=== PATIENT | male | born 1985 | race African-American/Black ===

== ENCOUNTER 2017-11-19 20:52 | Inpatient (IN) | payer BC ==
[~2017-11-19 20:52] MED LIST: ISOVUE-370 76%-LOCM 1 ML ONE
[2017-11-19 21:29] LABS: #Basophils 0.1 thou/uL (0.0-0.2); #Eosinphils 0.1 thou/uL (0.0-0.7); #Lymphocytes 2.9 thou/uL (1.20-3.40); #Monocytes 0.7 thou/uL (0.11-0.59); #Neutrophils 7.1 thou/uL (1.40-6.50); %Basophils 0.9 % (0.0-1.0); %Eosinophils 0.9 % (0.0-10.0); %Lymphocytes 26.6 % (21.0-51.0); %Monocytes 6.1 % (0.0-10.0); %Neutrophils 65.5 % (42.0-75.0); Hemoglobin 15.9 g/dL (14.0-18.0); Mean Corpuscular HGB CONC 34.3 g/dL (32.0-36.0); Mean Corpuscular Hemoglobin 34.1 pg (27.0-31.0); Mean Corpuscular Volume 99.6 fL (78.0-98.0); Mean Platelet Volume 6.8 fL (7.4-10.4); Platelet Count 242 thou/uL (130-400); RBC Distribution Width 11.1 % (11.5-14.5); Red Blood Cell (RBC) Count 4.67 mill/uL (4.70-6.10); White Blood Cell (WBC) Count 10.8 thou/uL (4.8-10.8)
[2017-11-19 21:48] LABS: ALT (SGPT) 67 U/L (8-55); AST (SGOT) 32 U/L (5-34); Albumin 4.8 g/dL (3.5-5.0); Alkaline Phosphatase 99 U/L (40-150); Anion Gap 12 mmol/L (10-20); BUN (Urea Nitrogen) 10 mg/dL (8.9-20.6); Bilirubin, Total 0.6 mg/dL (0.2-1.2); Calc. Creatinine Clearance 0 mL/min (70-130); Calcium 9.5 mg/dL (7.8-10.44); Carbon Dioxide 21 mmol/L (22-29); Chloride 109 mmol/L (98-107); Estimated GFR-MDRD Greater than 90; Globulin 2.6 g/dL (2.4-3.5); Glucose 94 mg/dL (70-105); Lipase 474 U/L (8-78); Potassium 3.7 mmol/L (3.5-5.1); Protein, Total 7.4 g/dL (6.0-8.3); Sodium 138 mmol/L (136-145)
[2017-11-19 22:26] LABS: Bilirubin Negative (Negative); Blood, Urine Negative (Negative); Clarity CLEAR (Clear); Glucose, Urine (Dipstick) Negative (Negative); Leukocyte Negative (Negative); Nitrite Negative (Negative); Protein, Urine (Dipstick) Negative (Neg-Trace); Specific Gravity, Urine 1.009 (1.002-1.036); Urobilinogen 0.2 mg/dL (0.2-1.0)
[2017-11-19] MEDS ORDERED: Ondansetron HCl/PF 4 MG/2 ML Vial ONE (22:26)
[2017-11-19] MEDS ORDERED: Morphine 10 MG/ML VIAL ONE (22:26)
[2017-11-20] MEDS ORDERED: Ondansetron HCl/PF 4 MG/2 ML Vial ONE (01:03)
[2017-11-20] MEDS ORDERED: metroNIDAZOLE 500 MG/100 ML BAG ONE (02:00)
[2017-11-20] MEDS ORDERED: Acetaminophen 325 MG TAB PO PRN (02:11)
[2017-11-20] MEDS ORDERED: Ondansetron ODT 4 MG TAB PO PRN (02:11)
[2017-11-20 03:07] LABS: #Eosinphils 0.1 thou/uL (0.0-0.7); #Lymphocytes 1.6 thou/uL (1.20-3.40); #Monocytes 1.1 thou/uL (0.11-0.59); %Basophils 0.2 % (0.0-1.0); %Eosinophils 0.5 % (0.0-10.0); %Lymphocytes 12.2 % (21.0-51.0); %Monocytes 8.5 % (0.0-10.0); %Neutrophils 78.5 % (42.0-75.0); Hemoglobin 14.4 g/dL (14.0-18.0); Mean Platelet Volume 7.1 fL (7.4-10.4); Platelet Count 221 thou/uL (130-400); RBC Distribution Width 11.1 % (11.5-14.5); Red Blood Cell (RBC) Count 4.37 mill/uL (4.70-6.10); White Blood Cell (WBC) Count 12.7 thou/uL (4.8-10.8)
--- NOTE | 2017-11-20 03:21 | HP ---
CODE STATUS: FULL CODE. PRIMARY CARE PHYSICIAN: None. TIME OF EVALUATION: 2:00 a.m. CHIEF COMPLAINT: Abdominal pain. HISTORY OF PRESENT ILLNESS: A 32-year-old male patient, no significant past medical history, came to the hospital after having severe gradually worsening, not relieving left lower quadrant pain that st arted for about 2 hours prior to presentation to ER when he was leaving his classes. Radiation is di ffusing the abdomen, no clear triggers, or alleviating factors, pain medications. REVIEW OF SYSTEMS: Constitutional: No fever or chills or generalized weakness. Respiratory: No co ugh, sputum production or shortness of breath. Cardiovascular: No chest pain, palpitations, shortne ss of breath. Gastrointestinal: Patient has severe abdominal pain, nausea, no vomiting. 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 Genitourinary: No burning with urination. Extremities: No leg swelling. PAST MEDICAL HISTORY: None reported. PAST SURGICAL HISTORY: None reported. PSYCHIATRIC HISTORY: None reported. SOCIAL HISTORY: Patient smoke cigars. FAMILY HISTORY: Mother with hypertension, hypothyroidism. DRUG ALLERGIES: No known drug allergies. REPORTED MEDICATIONS: Flonase 2 sprays once a day. PHYSICAL EXAMINATION: VITAL SIGNS: On presentation blood pressure 124/79 with heart rate 77, respiratory rate was 18, temp erature 98.6, pain 10/10. GENERAL APPEARANCE: The patient is alert, oriented, not in any acute distress. HEENT: Normocephalic, conjunctivae. Moist oral mucosa. Anicteric. NECK: No JVD. RESPIRATORY: Bilateral air entry. No rales, no wheezing. Symmetric expansion. CARDIOVASCULAR: Normal rate, regular rhythm. No murmurs, no gallop, no edema. ABDOMEN: Soft, normal bowel sounds, tender. MUSCULOSKELETAL: Baseline range of motion and strength. No tenderness. SKIN: Warm and intact. No pale, no rash, no redness. NEUROLOGIC: Baseline sensory. No evidence of any new focal weakness. Baseline speech. Cranial ner ve seems to be intact. PSYCHIATRIC: Good mood . No anxiety, oriented, optimal judgment. LABORATORY DATA: Reviewed. White count is 10, hemoglobin 15, platelet count 242. Sodium 138, potas sium 3.7, chloride 109, carbon dioxide 21, anion gap 12, BUN 10, creatinine 0.9, GFR 90, glucose 94, calcium 9.5. Total bilirubin 0.6, AST 32, ALT 67, lipase 474. Radiology report: This report was given to ER physician, results were discussed with performing [place]. Patient had acute uncomplicated sigmoid diverticulitis. ASSESSMENT AND PLAN: The patient will be placed in the hospital with following medical problems: 1. Acute sigmoid diverticulitis, place the patient on Cipro and Flagyl, pain management, hydration. Education regarding change in diet has been given. 2. Possible acute pancreatitis, lipase is high, patient receiving IV fluids, pain management, might need opioids for optimal control. Patient is at high risk for complication for treatment. 3. Deep venous thrombosis prophylaxis.
[2017-11-20] MEDS: Sodium Chloride 0.9% 1,000 ML IV SCH ×3 (04:08→15:01)
[2017-11-20 04:12] LABS: Anion Gap 16 mmol/L (10-20); BUN (Urea Nitrogen) 9 mg/dL (8.9-20.6); Calc. Creatinine Clearance 0 mL/min (70-130); Calcium 8.9 mg/dL (7.8-10.44); Carbon Dioxide 18 mmol/L (22-29); Chloride 110 mmol/L (98-107); Estimated GFR-MDRD Greater than 90; Glucose 101 mg/dL (70-105); Sodium 140 mmol/L (136-145)
[2017-11-20] MEDS: metroNIDAZOLE 500 MG in Premix Bag 1 BAG IVPB SCH ×3 (05:27→22:09)
[2017-11-20 06:38] LABS: Lactic Acid 1.6 mmol/L (0.5-2.2)
[2017-11-20] MEDS: Enoxaparin Sodium 40 MG/0.4 ML SYRINGE SC SCH (07:49)
--- NOTE | 2017-11-20 08:48 | CT ---
PRELIMINARY REPORT/[facility]/EMERGENTY AFTER-HOURS PROCEDURE CT Abdomen and Pelvis With Intravenous Contrast CLINICAL HISTORY: 32 years old, male; Pain; Abdominal pain; Generalized; Patient HX: M32 reports to ed C/O abdominal pa in. Pt reports llq pain started x2 hours ago when leaving night classes. Pt reports an increase in ni ght sweats and chills for last few weeks. Pt denies n/v/d. Pt reports lbm was today. Pt also reports back pain but no radiation. TECHNIQUE: Axial computed tomography images of the abdomen and pelvis with intravenous contrast. Oral contrast w as administered. Coronal reformatted images were created and reviewed. COMPARISON: No relevant prior studies available. FINDINGS: Lung bases: Minimal bibasilar dependent atelectasis. ABDOMEN: Liver: Mild hepatic steatosis. Gallbladder and bile ducts: Unremarkable Pancreas: Unremarkable. Spleen: Unremarkable. Adrenals: Unremarkable. Kidneys and ureters: Right renal cyst measuring approximately 2.1 x 1.6 cm. Stomach and bowel: Diverticulosis of the colon with mild inflammatory changes in the sigmoid. PELVIS: Appendix: Normal appendix. Bladder: Unremarkable. Reproductive: Unremarkable. ABDOMEN and PELVIS: Intraperitoneal space: No free air. No significant fluid collection. Bones/joints: No acute fracture. No dislocation. Soft tissues: Unremarkable. Vasculature: Unremarkable. No abdominal aortic aneurysm. Lymph nodes: Scattered nonspecific subcentimeter mesenteric lymph nodes. IMPRESSION: Acute uncomplicated sigmoid diverticulitis. Thank you for allowing us to participate in the care of your patient. Dictated and Authenticated by: Khurram Wang MD 11/20/2017 1:04 AM Central Time ([place] & [place]) FINAL REPORT CT ABDOMEN AND PELVIS WITH IV AND ORAL CONTRAST PERFORMED ON AN EMERGENCY BASIS: Date: 11/20/17 Time: 0013 hours HISTORY: Abdominal pain. Fever. FINDINGS: Findings agree with the preliminary report by Allison. Very mild inflammatory changes of the sigmoid col on with extensive diverticula. No evidence of bowel obstruction or complication. POS: [facility]
--- NOTE | 2017-11-20 08:49 | ULT ---
PRELIMINARY REPORT/[facility]/EMERGENTY AFTER-HOURS PROCEDURE US Abdomen Limited, Right Upper Quadrant CLINICAL HISTORY: 32 years old, male; Pain and signs and symptoms; Nausea and vomiting; Abdominal pain; Epigastric TECHNIQUE: Real-time ultrasound of the right upper quadrant with image documentation. COMPARISON: CT Abdomen Pelvis W Con 2017-11-20 00:10 FINDINGS: Liver: No mass. No intrahepatic bile duct dilation. Gallbladder: Normal gallbladder wall thickness measuring 1 mm. Negative sonographic Gray's sign. No gallstones. Common bile duct: Normal common bile duct measuring 2 mm. No stones. No dilation. Pancreas: Pancreas is obscured. Right kidney: Right kidney measuring 10.8 x 4.6 x 5.4 cm. No stones. No hydronephrosis. Free fluid: No free fluid. IMPRESSION: No acute findings. Thank you for allowing us to participate in the care of your patient. Dictated and Authenticated by: Khurram Wang MD 11/20/2017 2:44 AM Central Time ([place] & [place]) FINAL REPORT RIGHT UPPER QUADRANT ULTRASOUND: Date: 11/20/17 FINDINGS/IMPRESSION: I agree with the preliminary report given by Allison. POS: OFF
[2017-11-20 09:13] LABS: Acetaminophen Less than 6.0 mcg/mL (10.0-30.0); Alcohol Less than 10 mg/dL (Less than 10); Salicylate Less than 8.0 mg/dL (15.0-30.0); Triglycerides 45 mg/dL (Less than 150)
[2017-11-20 09:59] LABS: Amphetamine Not Detected (NotDetected); Barbiturates Screen Not Detected (NotDetected); Benzodiazepine Screen Not Detected (NotDetected); Cocaine Metabolite Screen Not Detected (NotDetected); Medtox Control Line Valid? VALID (VALID); Medtox Reader # READER 1; Methadone Not Detected (NotDetected); Methamphetamine Not Detected (NotDetected); Opiate Screen Detected (NotDetected); Oxycodone Screen Not Detected (NotDetected); Phencyclidine (PCP) Not Detected (NotDetected); THC/Cannabinoid Screen Detected (NotDetected); Tricyclic Screen Not Detected (NotDetected)
--- NOTE | 2017-11-20 13:25 | PDOC.PN ---
- Subjective Encounter Start Date: 11/20/17 Encounter Start Time: 12:00 Subjective: c/o abd pain, no nausea now -: generalized abd pain, no radiation, 6/10 intensity better now after meds -: family at bedside - Objective Resuscitation Status: Resuscitation Status FULL:Full Resuscitation MAR Reviewed: Yes Vital Signs & Weight: Vital Signs (12 hours) Temp Pulse Resp BP Pulse Ox 11/20/17 08:00 97.8 F 77 18 97 11/20/17 07:31 97.8 F 77 18 130/69 98 11/20/17 03:00 98.3 F 71 20 96 Result Diagrams: 11/20/17 02:04 11/20/17 02:04 Phys Exam - Physical Examination HEENT: PERRLA, moist MMs Neck: no JVD, supple Respiratory: no wheezing, no rales Cardiovascular: RRR, no significant murmur Gastrointestinal: soft, no distention, positive bowel sounds tenderness+ no rebound or guarding Musculoskeletal: no edema, pulses present Neurological: non-focal, moves all 4 limbs Psychiatric: normal affect, A&O x 3 Dx/Plan (1) Sigmoid diverticulitis Code(s): K57.32 - DVTRCLI OF LG INT W/O PERFORATION OR ABSCESS W/O BLEEDING Status: Acute (2) Abdominal pain Code(s): R10.9 - UNSPECIFIED ABDOMINAL PAIN Status: Acute Qualifiers: Abdominal location: generalized Qualified Code(s): R10.84 - Generalized abdominal pain (3) Metabolic acidosis Code(s): E87.2 - ACIDOSIS Status: Acute - Plan lipase elevated sec to ?nausea/vomiting, will monitor -: full liq diet, cipro and flagyl -: GI consultation -: dc plan in am if stable, gentle iv hydration -: morphine prn for pain * . Review of Systems - Medications/Allergies Allergies/Adverse Reactions: Allergies Allergy/AdvReac Type Severity Reaction Status Date / Time No Known Allergies Allergy Verified 11/20/17 03:10 Medications: Current Medications Acetaminophen (Tylenol) 650 mg PO Q4H PRN PRN Reason: Headache/Fever or Pain Enoxaparin Sodium (Lovenox) 40 mg SC 0900 [facility] Last Admin: 11/20/17 07:49 Dose: 40 mg Ciprofloxacin/Dextrose 400 mg/ (Device) 200 mls @ 200 mls/hr IVPB 0300,1500 JOSE Last Admin: 11/20/17 04:10 Dose: 200 mls Metronidazole 500 mg/ Device 100 mls @ 100 mls/hr IVPB Q8HR [facility] Last Admin: 11/20/17 05:27 Dose: Not Given Sodium Chloride (Normal Saline 0.9%) 1,000 mls @ 70 mls/hr IV .[id number] [facility] Morphine Sulfate (Morphine) 2 mg SLOW IVP Q4H PRN PRN Reason: Severe Pain (7-10) Last Admin: 11/20/17 08:42 Dose: 2 mg Ondansetron HCl (Zofran Odt) 4 mg PO Q6H PRN PRN Reason: Nausea/Vomiting
--- NOTE | 2017-11-20 15:57 | PQF ---
CLINICAL DOCUMENTATION IMPROVEMENT CLARIFICATION FORM: ICD-10 Updated PLEASE DO AN ADDENDUM TO THE PROGRESS NOTE WITH ANY DOCUMENTATION UPDATES OR ADDITIONS AND CARRY THROUGH TO DC SUMMARY. THANK YOU. DATE: 11/21/17 ATTN: DR. ARENAS Please exercise your independent, professional judgment in responding to the clarification form. Clinical indicators are provided on the bottom of this form for your review Please check appropriate box(s) to clarify if the following diagnosis has been ruled in or ruled out: PANCREATITIS [ X ] Ruled in diagnosis [ ] Continue to treat [ X ] Resolved [ ] Ruled out diagnosis [ ] Cannot rule out diagnosis [ ] Other diagnosis [ ] Unable to determine In addition, please specify: Present on Admission (POA): [ X ] Yes [ ] No [ ] Unable to determine For continuity of documentation, please document condition throughout progress notes and discharge summary. Thank You. CLINICAL INDICATORS - SIGNS / SYMPTOMS / LABS H&P: "POSSIBLE ACUTE PANCREATITIS" LIPASE 474 RISKS: SEVERE, GRADUALLY WORSENING, NOT RELIEVING LEFT LOWER QUADRANT PAIN (PER H&P) HISTORIAN REPORTS CHILLS (ER REPORT) H/O SOCIAL DRINKING TREATMENT: GI CONSULT IV PAIN CONTROL (ER-PRESENT) IV ANTIEMETICS (ER-PRESENT) IV CIPRO (ER-PRESENT) IV FLAGYL (ER-PRESENT) (This form is maintained as a part of the permanent medical record) 2014 [employer]. All Rights Reserved [email or web address] Office: [phone] [email or web address]
--- NOTE | 2017-11-20 20:50 | CON ---
DATE OF CONSULTATION: 11/20/2017 REASON FOR CONSULTATION: Diverticulitis, elevated lipase. CONSULTING PHYSICIAN: Alycia Cox M.D. HISTORY OF PRESENT ILLNESS: The patient is a 32-year-old male with no significant past medical history presenting with complaints of abdominal pain. He states that he was in his usual state of health until last night when he had acute onset of periumbilical abdominal pain characterized as a cramping/throbbing type pain, would radiate to the mid epigastric and left lower quadrant, was constant and would reach a severity of approximately 10/10. The pain was worse with urination and increased physical activity, better with the administration of pain medications. Associated symptoms include subjective fevers and chills (although the patient did not measure his temperature at home), otherwise he denies any nausea, vomiting, diarrhea, constipation, odynophagia, dysphagia or weight loss. Of note, the patient recently traveled to the [facility] approximately 3 weeks ago with a mild case of nausea and vomiting shortly before the trip. However, over the last 3-4 days per patient and his , he noticed increased night sweats that would "soaked the bed sheets". REVIEW OF SYSTEMS: A 10-category review of systems was obtained with all responses negative except for the pertinent positives as listed in the HPI. PAST MEDICAL HISTORY: None. PAST SURGICAL HISTORY: None. FAMILY HISTORY: Denies any GI malignancies, colon cancer, or colon polyps. SOCIAL HISTORY: Drinks approximately 1-2 beers on the weekend. He also drinks 1-2 Black and Mild cigars on the weekends when he drinks. Denies any illicit drug use. OUTPATIENT MEDICATIONS: Flonase. ALLERGIES: No known drug allergies. PHYSICAL EXAMINATION: VITAL SIGNS: Temperature 97.8, pulse 77, blood pressure 130/69, respiratory rate 18, satting 97% on room air. GENERAL: The patient is lying in bed, in no acute distress. Alert and oriented x4. NECK: Supple. No JVD noted. CARDIOVASCULAR: Regular rate and rhythm with no discernible murmurs, gallops or rubs. RESPIRATORY: Clear to auscultation bilaterally with no wheezes or rales. ABDOMEN: Normoactive bowel sounds, soft, nondistended. Tenderness to palpation in the left lower quadrant, periumbilical and midepigastric regions. EXTREMITIES: No cyanosis, clubbing or edema. LABORATORY DATA: CBC with a white blood cell count of 12.7, hemoglobin 14.4, hematocrit 43.8, platelets 221. Chemistry with a sodium of 140, potassium 4.0, chloride 110, CO2 18, BUN 9, creatinine 0.82, glucose 101, AST 32, ALT 67, alkaline phosphatase 99, total bilirubin 0.6, lipase 474. IMAGING DATA: CT of the abdomen and pelvis obtained on 11/19/2017 showed mild hepatic steatosis. It also showed diverticulosis of the colon with mild inflammatory changes in the sigmoid colon without any evidence of bowel obstruction. The pancreas appeared unremarkable during this examination. ASSESSMENT AND PLAN: The patient is a 32-year-old male with no significant past medical history presenting with abdominal pain consistent with acute uncomplicated diverticulitis and elevated serum lipase. Acute uncomplicated diverticulitis: The patient presents with acute onset of periumbilical/left lower quadrant abdominal pain last night, characterized as a cramping/throbbing type sensation radiating to the mid epigastric region and reaching a severity of 10/10. He is presenting with a slightly elevated white blood cell count and imaging consistent with the diagnosis of diverticulitis without any evidence of perforation or abscess formation. At this time, his current clinical picture is most consistent with acute uncomplicated diverticulitis and as such should respond to IV fluid administration and antibiotic therapy. However, with the acute onset of diverticulitis in such a young patient, other underlying colonic abnormalities cannot be ruled out at this time including colonic polyps, inflammatory bowel disease and/or colonic cancer (much less likely). RECOMMENDATIONS: 1. We would continue pain control as you are doing. 2. We would continue with antibiotic therapy with ciprofloxacin and Flagyl for treatment of diverticulitis. 3. Agree with IV fluid administration, but we would consider increasing the rate to 100-125 mL per hour. 4. We will continue to monitor clinically for signs of deterioration or perforation. 5. After resolution of this acute period, I would recommend a colonoscopy in 4- 6 weeks for evaluation of other possible underlying pathology. Elevated lipase. Along with the acute onset of periumbilical abdominal pain, he is also presenting with a significantly elevated lipase at 474, which is greater than 3 times the upper limit of normal. Given the location of his pain in roughly the periumbilical region, it is difficult to ascertain whether or not this is due to his acute diverticulitis versus acute pancreatitis. He currently does not display any symptoms consistent with acute pancreatitis other than the pain. The differential for an elevated lipase of this nature could include acute mild pancreatitis, abnormal laboratory of serum lipase. HIV infection, chronic alcoholism, colonic obstruction, peritonitis, perforation, colon cancer, bowel inflammation/inflammatory bowel disease, macrolipasemia, or celiac disease. RECOMMENDATIONS: 1. Would draw an HIV and chronic HCV serologies for ascertain of possible underlying infection when coupled with night sweats, this would be prudent. 2. We would obtain tissue transglutaminase for possible celiac disease. 3. Would repeat the lipase tomorrow to determine if the level is still elevated. 4. We will hold off on colonoscopy for now for evaluation of other underlying abnormalities given the increased risk of perforation with colonoscopy in light of acute uncomplicated diverticulitis. We will continue to follow. Please call with any additional questions. JANIE
[2017-11-21] MEDS: Sodium Chloride 0.9% 1,000 ML IV SCH ×2 (03:55→21:11)
[2017-11-21 04:51] LABS: #Eosinphils 0.1 thou/uL (0.0-0.7); #Lymphocytes 1.8 thou/uL (1.20-3.40); #Monocytes 0.8 thou/uL (0.11-0.59); #Neutrophils 3.9 thou/uL (1.40-6.50); %Basophils 0.5 % (0.0-1.0); %Eosinophils 1.7 % (0.0-10.0); %Lymphocytes 27.3 % (21.0-51.0); %Monocytes 11.3 % (0.0-10.0); %Neutrophils 59.2 % (42.0-75.0); Hemoglobin 14.5 g/dL (14.0-18.0); Mean Corpuscular HGB CONC 34.5 g/dL (32.0-36.0); Mean Corpuscular Hemoglobin 34.8 pg (27.0-31.0); Platelet Count 196 thou/uL (130-400); Red Blood Cell (RBC) Count 4.16 mill/uL (4.70-6.10); White Blood Cell (WBC) Count 6.6 thou/uL (4.8-10.8)
[2017-11-21 05:02] LABS: ALT (SGPT) 39 U/L (8-55); AST (SGOT) 16 U/L (5-34); Alkaline Phosphatase 75 U/L (40-150); Anion Gap 9 mmol/L (10-20); BUN (Urea Nitrogen) 7 mg/dL (8.9-20.6); Bilirubin, Total 0.8 mg/dL (0.2-1.2); Calc. Creatinine Clearance 0 mL/min (70-130); Calcium 8.7 mg/dL (7.8-10.44); Carbon Dioxide 23 mmol/L (22-29); Cardiac Risk 3.4 (Less than 4.5); Chloride 110 mmol/L (98-107); Cholesterol 134 mg/dl (< 200 Desired); Estimated GFR-MDRD Greater than 90; Globulin 2.1 g/dL (2.4-3.5); Glucose 105 mg/dL (70-105); HDL Cholesterol 40 mg/dL (>60 Neg Risk); LDL Cholesterol, Calculated 79 mg/dL; Potassium 3.8 mmol/L (3.5-5.1); Protein, Total 6.1 g/dL (6.0-8.3); Sodium 138 mmol/L (136-145); Triglycerides 74 mg/dL (Less than 150)
[2017-11-21] MEDS: metroNIDAZOLE 500 MG in Premix Bag 1 BAG IVPB SCH ×3 (05:13→21:12)
[2017-11-21] MEDS: Enoxaparin Sodium 40 MG/0.4 ML SYRINGE SC SCH (09:03)
--- NOTE | 2017-11-21 13:15 | PRG ---
DATE OF SERVICE: 11/21/2017 REASON FOR CONSULTATION: Diverticulitis, elevated lipase. SUBJECTIVE: The patient did well overnight with no acute events or problems. Today he states his abdominal pain has improved somewhat with lessened pain in the periumbilical and left lower quadrant regions. Currently, denies any nausea , vomiting, fevers, chills, diarrhea or constipation. He has been able to tolerate a full liquid diet with plans to advance his diet today. OBJECTIVE: VITAL SIGNS: Temperature 97.6, pulse 72, blood pressure 108/67, respiratory rate 16, satting 97% on room air. GENERAL: The patient is lying in bed in no acute distress. He is alert and oriented x4. CARDIOVASCULAR: Regular rate and rhythm. RESPIRATORY: Clear to auscultation bilaterally. ABDOMEN: Normoactive bowel sounds, soft, nondistended. Tenderness to palpation in the periumbilical and left lower quadrants. EXTREMITIES: No cyanosis, clubbing or edema. LABORATORY DATA: CBC with a white blood cell count of 6.6, hemoglobin 14.5, hematocrit 41.9, platelets 196. Chemistry with a sodium of 138, potassium 3.8, chloride 110, CO2 23, BUN 7, creatinine 0.84, glucose 105, AST 16, ALT 39, alkaline phosphatase 75, total bilirubin 0.8. IMAGING DATA: No current GI imaging is available for review. ASSESSMENT AND PLAN: The patient is a 32-year-old male with no significant past medical history presenting with abdominal pain consistent with acute uncomplicated diverticulitis and elevated serum lipase. Acute uncomplicated diverticulitis. The patient initially presented with acute onset of periumbilical/left lower quadrant abdominal pain characterized as a cramping, throbbing type sensation that would reach a severity of 10/10. On admission, he was noted to have a slightly elevated white blood cell count as well as imaging consistent with acute uncomplicated diverticulitis. He was subsequently placed on antibiotic therapy and has thus far responded well to management. RECOMMENDATIONS: 1. Would defer pain control to primary team. 2. Would continue with antibiotic therapy. 3. I agree with IV fluid administration, but consider increasing the rate to 100 to 125 mL per hour. 4. Continue to monitor clinically for signs of deterioration. 5. Would recommend a repeat colonoscopy in 4-6 weeks after this hospitalization for further evaluation of possible underlying pathology. Elevated lipase Along with the acute onset of periumbilical abdominal pain he also presented with a significantly elevated lipase at 474, however, he did not have a clinical history nor imaging findings that were concerning for acute pancreatitis. At this point in time, the etiology of the elevated lipase is unknown, but differential could include HIV infection, chronic alcoholism, chronic hepatitis C, celiac disease, bowel perforation/inflammation/necrosis, acute pancreatitis or macrolipasemia. RECOMMENDATIONS: 1. Would draw an HIV and chronic HCV serologies for evaluation of possible elevated lipase. 2. Would also draw a celiac panel as a possible origin of his elevated lipase. 3. Would repeat the lipase and reevaluate. We will continue to follow. Please call with any additional questions. JANIE
--- NOTE | 2017-11-21 18:06 | PDOC.PN ---
- Subjective Encounter Start Date: 11/21/17 Encounter Start Time: 09:40 Pt seen for followup re: diverticulitis. Reports abdo pain better. No nausea or vomiting. - Objective Resuscitation Status: Resuscitation Status FULL:Full Resuscitation MAR Reviewed: Yes Vital Signs & Weight: Vital Signs (12 hours) Temp Pulse Resp BP Pulse Ox 11/21/17 16:04 98.5 F 76 18 122/71 97 11/21/17 11:40 97.6 F 72 16 108/67 97 11/21/17 08:00 98.3 F 69 16 11/21/17 07:39 98.3 F 69 16 114/70 97 I&O: 11/20/17 11/21/17 11/22/17 06:59 06:59 06:59 Intake Total 1850 1950 Output Total 0 1000 Balance 1850 950 Result Diagrams: 11/21/17 04:15 11/21/17 04:15 Additional Labs: Labs reviewed by me Phys Exam - Physical Examination Constitutional: NAD HEENT: moist MMs, sclera anicteric, oral pharynx no lesions, 2+ tonsils Neck: no nodes, no JVD, supple, full ROM Respiratory: no wheezing, no rales, no rhonchi, clear to auscultation bilateral Cardiovascular: RRR, no rub S1, S2 Gastrointestinal: soft, no distention, positive bowel sounds Mild LLQ tenderness Neurological: moves all 4 limbs Psychiatric: normal affect, A&O x 3 Dx/Plan (1) Sigmoid diverticulitis Code(s): K57.32 - DVTRCLI OF LG INT W/O PERFORATION OR ABSCESS W/O BLEEDING Status: Acute Comment: continue antibiotics as below (2) Abdominal pain Code(s): R10.9 - UNSPECIFIED ABDOMINAL PAIN Status: Acute Qualifiers: Abdominal location: generalized Qualified Code(s): R10.84 - Generalized abdominal pain Comment: Improving (3) Metabolic acidosis Code(s): E87.2 - ACIDOSIS Status: Resolved (4) Acute pancreatitis Code(s): K85.90 - ACUTE PANCREATITIS WITHOUT NECROSIS OR INFECTION, UNSP Status: Resolved - Plan * . Review of Systems - Review of Systems Constitutional: negative: fever, chills, sweats, weakness, malaise Respiratory: negative: Cough, Shortness of Breath, SOB with Excertion, Pleuritic Pain, Wheezing Cardiovascular: negative: chest pain, palpitations, orthopnea, paroxysmal nocturnal dyspnea, edema, light headedness Gastrointestinal: Abdominal Pain. negative: Nausea, Vomiting, Diarrhea, Constipation, Melena, Hematochezia Genitourinary: negative: Dysuria, Frequency, Incontinence, Hematuria, Retention Skin: negative: Rash, Lesions, Slim, Bruising - Medications/Allergies Allergies/Adverse Reactions: Allergies Allergy/AdvReac Type Severity Reaction Status Date / Time No Known Allergies Allergy Verified 11/20/17 03:10 Medications: Current Medications Acetaminophen (Tylenol) 650 mg PO Q4H PRN PRN Reason: Headache/Fever or Pain Enoxaparin Sodium (Lovenox) 40 mg SC 0900 [facility] Last Admin: 11/21/17 09:03 Dose: 40 mg Ciprofloxacin/Dextrose 400 mg/ (Device) 200 mls @ 200 mls/hr IVPB 0300,1500 JOSE Last Admin: 11/21/17 14:53 Dose: 200 mls Metronidazole 500 mg/ Device 100 mls @ 100 mls/hr IVPB Q8HR [facility] Last Admin: 11/21/17 13:15 Dose: 100 mls Sodium Chloride (Normal Saline 0.9%) 1,000 mls @ 100 mls/hr IV .Q10H [facility] Morphine Sulfate (Morphine) 2 mg SLOW IVP Q4H PRN PRN Reason: Severe Pain (7-10) Last Admin: 11/21/17 03:55 Dose: 2 mg Ondansetron HCl (Zofran Odt) 4 mg PO Q6H PRN PRN Reason: Nausea/Vomiting
[2017-11-21] MEDS ORDERED: Calcium Carbonate 500 MG ChewTAB PO PRN (20:27)
[2017-11-22 04:56] LABS: Hep C IgG Ab Non-Reactive (NonReactive); Hep C Index 0.09 S/CO (0-0.79)
[2017-11-22] MEDS: metroNIDAZOLE 500 MG in Premix Bag 1 BAG IVPB SCH (05:34)
[2017-11-22] MEDS: Sodium Chloride 0.9% 1,000 ML IV SCH (06:34)
[2017-11-22 07:45] VITALS: BMI 29.7
[2017-11-22] MEDS: Enoxaparin Sodium 40 MG/0.4 ML SYRINGE SC SCH (09:25)
[2017-11-22 11:31] VITALS: BP 123/78; TEMP 98.1
[2017-11-22 12:25] LABS: HIV (1/2) Antibody/Antigen Non-Reactive (NonReactive); HIV 1/2 INDEX 0.09 S/CO (<1.00)
--- NOTE | 2017-11-23 00:05 | DIS ---
DATE OF ADMISSION: 11/20/2017 DATE OF DISCHARGE 11/22/2017 PRIMARY CARE PROVIDER: Asmita. DISCHARGE DIAGNOSES: 1. Acute sigmoid diverticulitis. 2. Acute pancreatitis. CONSULTATIONS DURING THIS HOSPITALIZATION: Gastroenterology, Dr. Bienvenido Taylor. CONDITION OF PATIENT ON THE DAY OF DISCHARGE: Stable. I assessed Mr. Lal on the day of discharge. He denies any chest pain or shortness of breath. He denies abdominal pain. Vital signs are stable. S1 and S2 are heard, regular. Lungs are clear to auscultation bilaterally. DISCHARGE MEDICATIONS: Ciprofloxacin 500 mg 2 times a day for 7 days, metronidazole 500 mg 3 times a day for 7 days and Flonase spray. HOSPITAL COURSE: Mr. Lal is a pleasant 32-year-old gentleman who was admitted to [facility] on 11/20/2017, for acute sigmoid diverticulitis and acute pancreatitis. He was treat ed with pain medications, intravenous fluids and antibiotics. He improved clinically. He was seen b Gastroenterology Service. During this hospitalization, he had nonreactive hepatitis C antibody and nonreactive HIV 1 and 2 anti gen test. At the time of discharge, celiac disease tests were pending. He is advised to follow up w [facility] Gastroenterology service for the same. Abdominal ultrasound done on 11/20/2017 did not show any acute findings. CT scan of the abdomen and pelvis done on 11/19/2017 showed acute uncomplicated sigmoid diverticulitis. He is advised to return to work as tolerated, starting 11/28/2017. DISCHARGE DESTINATION: Home. TOTAL AMOUNT OF TIME SPENT COORDINATING THIS DISCHARGE: 32 minutes.
[2017-11-23 13:11] LABS: EliA Celiac New Method **** NEW METHOD ****; t-Transglutaminase (tTG) IgA 0.2 EliAU/mL (<7 Negative); t-Transglutaminase (tTG) IgG Less than 0.6 EliAU/mL (<7 Negative)
== END 2017-11-22 13:52 | disposition home or self-care (01) | DRG 391 ==
LOC: ERS 20:52 → T4-B 11-20 01:44
PROVIDERS: ADMIT Hospitalist; ATTEND Hospitalist
DX: K57.32 Diverticulitis of large intestine without perforation or abscess without bleeding (principal); K85.90 Acute pancreatitis without necrosis or infection, unspecified; E87.2 Acidosis
CPT/HCPCS: 36415; 74177; 76705; 80048; 80053; 80061; 80306; 80307; 81003; 83516; 83605; 83690; 84478; 85025; 86803; 87040; 87389; 96361; 96365; 96375; 96376; A4216; J0744; J1650; J2270; J2405

== ENCOUNTER 2017-11-26 06:48 | Emergency (ER) | payer BC ==
[2017-11-26] MEDS ORDERED: Dicyclomine 20 MG TAB ONE (07:34)
[2017-11-26] MEDS ORDERED: Ondansetron ODT 4 MG TAB ONE (07:34)
[2017-11-26 08:04] LABS: #Eosinphils 0.1 thou/uL (0.0-0.7); #Lymphocytes 2.3 thou/uL (1.20-3.40); #Monocytes 0.7 thou/uL (0.11-0.59); #Neutrophils 3.8 thou/uL (1.40-6.50); %Basophils 0.7 % (0.0-1.0); %Eosinophils 1.4 % (0.0-10.0); %Lymphocytes 32.7 % (21.0-51.0); %Monocytes 9.7 % (0.0-10.0); %Neutrophils 55.5 % (42.0-75.0); Hemoglobin 15.9 g/dL (14.0-18.0); Mean Corpuscular HGB CONC 33.5 g/dL (32.0-36.0); Mean Corpuscular Hemoglobin 33.3 pg (27.0-31.0); Mean Corpuscular Volume 99.5 fL (78.0-98.0); Mean Platelet Volume 7.1 fL (7.4-10.4); Platelet Count 265 thou/uL (130-400); Red Blood Cell (RBC) Count 4.77 mill/uL (4.70-6.10); White Blood Cell (WBC) Count 6.9 thou/uL (4.8-10.8)
[2017-11-26 08:14] LABS: Bilirubin Negative (Negative); Blood, Urine Negative (Negative); Clarity CLEAR (Clear); Glucose, Urine (Dipstick) Negative (Negative); Leukocyte Negative (Negative); Nitrite Negative (Negative); Protein, Urine (Dipstick) Negative (Neg-Trace); Specific Gravity, Urine 1.018 (1.002-1.036); Urobilinogen 0.2 mg/dL (0.2-1.0); pH, Urine 6.5 (5.0-9.0)
[2017-11-26 08:15] LABS: ALT (SGPT) 182 U/L (8-55); AST (SGOT) 148 U/L (5-34); Albumin 4.6 g/dL (3.5-5.0); Alkaline Phosphatase 88 U/L (40-150); Anion Gap 13 mmol/L (10-20); BUN (Urea Nitrogen) 11 mg/dL (8.9-20.6); Bilirubin, Total 0.5 mg/dL (0.2-1.2); Calc. Creatinine Clearance 0 mL/min (70-130); Calcium 9.5 mg/dL (7.8-10.44); Carbon Dioxide 21 mmol/L (22-29); Chloride 109 mmol/L (98-107); Estimated GFR-MDRD Greater than 90; Globulin 2.4 g/dL (2.4-3.5); Glucose 102 mg/dL (70-105); Lipase 72 U/L (8-78); Potassium 4.2 mmol/L (3.5-5.1); Sodium 139 mmol/L (136-145)
--- NOTE | 2017-11-26 08:33 | CT ---
CT OF THE ABDOMEN AND PELVIS WITH CONTRAST: COMPARISON: 11/20/17. HISTORY: Abdominal pain. History of diverticulitis. TECHNIQUE: Multiple contiguous axial images were obtained in a CT of the abdomen and pelvis with contrast. Peter nal reformats were performed. FINDINGS: There are scattered diverticula in the sigmoid colon. There is questionable stranding change adjacen t to the sigmoid colon which could represent early acute diverticulitis. No severe inflammatory hennessy ge is seen. This stranding change is unchanged compared to the prior examination and could potential ly represent scarring rather than acute inflammatory. The small bowel is normal in caliber. The paxton endix is normal. No free air is seen in the abdomen. There is a 2.1 cm cyst in the right kidney. The liver, gallbladder, left kidneys, adrenal glands, sp kash, and pancreas are unremarkable. No abdominal or pelvic lymphadenopathy are seen. The osseous structures, visualized inferior thorax, and abdominal wall soft tissues are unremarkable. IMPRESSION: 1. Diverticulosis with possible mild acute diverticulitis. This could also represent scarring rathe r than an acute inflammatory episode. Correlate with white blood cell count. 2. Right renal cyst. POS: H
[2017-11-26] MEDS ORDERED: Acetaminophen/Codeine 30-300mg Tablet ONE (09:34)
[2017-11-26] MEDS ORDERED: ISOVUE-370 76%-LOCM 1 ML ONE (12:48)
== END 2017-11-26 11:32 | disposition home or self-care (01) ==
LOC: ERS 06:48
DX: K57.32 Diverticulitis of large intestine without perforation or abscess without bleeding (principal); F17.210 Nicotine dependence, cigarettes, uncomplicated; Z79.899 Other long term (current) drug therapy
CPT/HCPCS: 36415; 74177; 80053; 81003; 83605; 83690; 85025; 87086; 96360; Q0162

== ENCOUNTER 2018-11-04 16:20 | Emergency (ER) | payer BC ==
[2018-11-04 16:58] LABS: #Basophils 0.1 thou/uL (0.0-0.2); #Eosinphils 0.1 thou/uL (0.0-0.7); #Lymphocytes 2.5 thou/uL (1.20-3.40); #Monocytes 0.5 thou/uL (0.11-0.59); #Neutrophils 2.6 thou/uL (1.40-6.50); %Basophils 1.1 % (0.0-1.0); %Eosinophils 1.4 % (0.0-10.0); %Lymphocytes 43.6 % (21.0-51.0); %Monocytes 8.9 % (0.0-10.0); Hemoglobin 15.2 g/dL (14.0-18.0); Mean Corpuscular Hemoglobin 33.5 pg (27.0-31.0); Mean Platelet Volume 7.8 fL (7.4-10.4); Platelet Count 206 thou/uL (130-400); Red Blood Cell (RBC) Count 4.53 mill/uL (4.70-6.10); White Blood Cell (WBC) Count 5.7 thou/uL (4.8-10.8)
--- NOTE | 2018-11-04 17:00 | RAD ---
CHEST 1 VIEW: Date: 11/04/18 Time: 1651 hours HISTORY: Near syncope and chest pain. FINDINGS: The heart size is normal. The lungs are well expanded without focal areas of consolidation, pneumotho races, or pleural effusions. IMPRESSION: No radiographic evidence of acute cardiopulmonary process. POS: OFF
[2018-11-04 17:23] LABS: ALT (SGPT) 44 U/L (8-55); AST (SGOT) 21 U/L (5-34); Albumin 4.4 g/dL (3.5-5.0); Alkaline Phosphatase 93 U/L (40-150); Anion Gap 12 mmol/L (10-20); BUN (Urea Nitrogen) 13 mg/dL (8.9-20.6); Bilirubin, Total 0.6 mg/dL (0.2-1.2); CK (CPK) 134 U/L (30-200); Calc. Creatinine Clearance 0 mL/min (70-130); Carbon Dioxide 21 mmol/L (22-29); Chloride 108 mmol/L (98-107); Estimated GFR-MDRD Greater than 90; Globulin 2.4 g/dL (2.4-3.5); Glucose 176 mg/dL (70-105); Potassium 3.9 mmol/L (3.5-5.1); Protein, Total 6.8 g/dL (6.0-8.3); Sodium 137 mmol/L (136-145)
== END 2018-11-04 19:33 | disposition home or self-care (01) ==
LOC: ERS 16:20
DX: R55 Syncope and collapse (principal); Z79.899 Other long term (current) drug therapy
CPT/HCPCS: 36415; 71045; 80053; 82550; 83880; 84484; 85025; 93005; 96360